=== PATIENT | male | born 1970 | race Caucasian/White ===

== ENCOUNTER 2019-09-30 00:03 | Day surgery (SDC) | payer BC, OTHER ==
[2019-09-30] VITALS (8 sets, daily range): BP systolic 117–152; BP diastolic 70–93; Ht 188 cm; Wt 145.5 kg
[~2019-09-30] VITALS: Ht 188 cm; Wt 145.5 kg
[~2019-09-30 00:03] MED LIST: ARTHROTEC 501 TAB.EC PO; HYDROCODONE-APA1 TAB PO
[2019-09-30] MEDS ORDERED: ULTRAM50 MG PO (00:12)
[2019-09-30 01:04] LABS: BASOPHILS 0.1 % (0-2); EOSINOPHILS 0.4 % (0-7); HEMATOCRIT 56.2 % (42.0-54.0); HEMOGLOBIN 19.9 g/dL (13.5-17.5); IMMATURE GRANULOCYTES 0.3 % (0-5); LYMPHOCYTES 2.9 % (15-50); MCH 32.5 pg (26.0-34.0); MCHC 35.4 g/dL (31.0-37.0); MCV 91.8 fL (80.0-100.0); MEAN PLATELET VOLUME 10.2 fL (7.4-10.4); MONOCYTES 5.7 % (2-11); NEUTROPHILS 90.6 % (40-80); PLATELET COUNT 214 10x3/uL (130-400); RBC 6.12 10x6/uL (4.20-6.10); RDW 12.4 % (11.5-14.5); WBC 15.9 10x3/uL (4.8-10.8)
[2019-09-30 01:13] LABS: APPEARANCE CLEAR (CLEAR); BILIRUBIN NEGATIVE (NEGATIVE); COLOR YELLOW (YELLOW); GLUCOSE NEGATIVE (NEGATIVE); KETONE MODERATE mg/dL (NEGATIVE); NITRITE NEGATIVE (NEGATIVE); PROTEIN NEGATIVE (NEGATIVE); UROBILINOGEN NORMAL (NORMAL)
[2019-09-30 01:15] LABS: ANION GAP 14.5 mmol/L (8-16); CARBON DIOXIDE 28.6 mmol/L (21.0-32.0); CREATININE - SERUM 1.4 mg/dL (0.6-1.3); POTASSIUM - SERUM 4.1 mmol/L (3.5-5.1)
[2019-09-30 01:21] LABS: ALBUMIN 3.9 g/dL (3.4-5.0); BILIRUBIN - TOTAL 0.71 mg/dL (0.2-1.3); PROTEIN - SERUM 7.7 g/dL (6.4-8.2)
[2019-09-30] MEDS ORDERED: RESTORIL15 MG PO (03:48)
[2019-09-30] MEDS ORDERED: IBUPROFEN600 MG PO (03:49)
--- NOTE | 2019-09-30 10:15 | NUR ---
PATIENT TO SURGERY
--- NOTE | 2019-09-30 12:20 | NUR ---
PATIENT BACK TO ROOM WITH IV INTACT. NO COMPLAINTS OR SIGNS OF DISTRESS. ABD INCISION X 3 WITH BANDAIDS CDI. NO COMPLAINTS AT THIS TIME. FAMILY AT BEDSIDE. PATIENT VS STABLE. CALL LIGHT WITHIN REACH.
--- NOTE | 2019-09-30 13:00 | NUR ---
PATIENT RECIEVED PAIN PILL. TOLERATED CLEAR LIQUIDS WITH NO PROBLEMS. IV INTACT. HURTING IN SHOULDERS. EXPLAINED TO PATIENT HE WOULD NEED TO GET UP AND MOVE AROUND. VERBALIZED UNDERSTANDING. CALL LIGHT WITHIN REACH.
--- NOTE | 2019-09-30 17:00 | NUR ---
PATIENT UP AMBULATING IN [place] WITH . NO PROBLEMS AT THIS TIME. TOLERATED REGULAR DIET WITH NO PROBLEMS. IV INTACT.
[2019-09-30] MEDS ORDERED: HYDROCODON-ACE1 EAC7 PO (17:08)
[2019-09-30] MEDS ORDERED: COLACE100 MG PO (17:09)
--- NOTE | 2019-09-30 18:00 | NUR ---
PATIENT RECIEVED DC INSTRUCTIONS. VERBALIZED UNDERSTANDING. PRESCRIPTION GIVEN TO . NO QUESTIONS AT THIS TIME. IV REMOVED WITH CATH TIP INTACT. CALL LIGHT WITHIN REACH. FAMILY AT BEDSIDE.
--- NOTE | 2019-10-02 08:49 | OP ---
PATIENT NAME: NORMA AMBRIZ MEDICAL RECORD: [id number] :70 LOCATION:D.OPS ADMISSION DATE: SURGEON: YAW MCKEON MD DATE OF OPERATION: 09/30/2019 PREOPERATIVE DIAGNOSIS: Acute appendicitis with localized peritonitis. POSTOPERATIVE DIAGNOSIS: Acute appendicitis with localized peritonitis. PROCEDURE: Laparoscopic appendectomy. SURGEON: Yaw Mckeon MD DROP HAMMER SET UP OPERATOR: None. BLOOD LOSS: Minimal. ANESTHESIA: General. COMPLICATIONS: None. The risks, possible complications and alternatives to the procedure were explained to the patient. He elects to proceed. The discussion specifically included, but was not limited to, bleeding requiring emergency reoperation, infection, intestinal injury as well as staple line leakage. OPERATIVE COURSE: The patient was conveyed to the operating room urgently on 09/30/2019. General anesthesia was induced by the anesthesia staff. The abdomen was sterilely prepped and draped. A small skin harish was accomplished in the left upper quadrant. Veress needle was inserted through the skin harish into the peritoneal cavity. CO2 insufflation was begun. Once a sufficient pneumoperitoneum had been achieved, a 5-mm trocar was inserted through an incision in left lower quadrant. A 5-mm trocar was inserted through an incision in the left upper quadrant. A 12-mm trocar was inserted through an incision at the umbilicus. During insertion of the Veress needle and all trocars, there appeared to have been no injury to the bowels, any intraperitoneal or retroperitoneal structures. An abdominal survey was undertaken. The appendix was actually not a right lower quadrant organ or right upper quadrant organ, it was some place in between. There was localized peritonitis. No evidence of rupture. No evidence of an abscess. I was able to grasp the appendix. Hold it anteriorly. A window was created in the mesoappendix. I took down the mesoappendix utilizing the laparoscopic EnSeal device. I then stapled across the tip of the cecum utilizing an Endo-JOSÉ LUIS type stapler with a blue load. The appendix was placed within a bag retrieval device. It was then withdrawn out through the umbilical fascia defect. The 12-mm trocar was replaced and the abdomen reinsufflated. I irrigated and aspirated the right upper quadrant and the right lower quadrant. There was no bleeding even at low pressure of 8. The 12-mm trocar was removed. The fascia at the umbilicus was closed with interrupted 0 Vicryl sutures utilizing the Shravan-Patti suture closure device. All trocars were removed and the abdomen desufflated. OPERATIVE REPORT [id number] KATINA,NORMA The skin at the umbilicus was closed with interrupted 4-0 Vicryl Rapide sutures. The other skin incisions were closed with interrupted intracuticular 3-0 Vicryls. Benzoin and Steri-Strips were applied. The patient was then extubated and conveyed to the post-anesthesia care unit where he was in stable condition. I plan that he will be dismissed home later today on hydrocodone as well as Colace. I will see him in the office in 2 to 3 weeks. TRANSINT:[id number] Voice Confirmation ID: [id number] DOCUMENT ID: [id number] YAW MCKEON MD at 0849 CC: PRATEEK OJEDA [id number] DICTATION DATE: 09/30/19 1148 MASKING MACHINE OPERATOR: 09/30/19 1239 [facility] 09/30/19 [id number] [place] [address]
--- NOTE | 2019-10-02 08:49 | DS ---
PATIENT:NORMA AMBRIZ :70 MEDICAL RECORD: [id number] DISCHARGE SUMMARY ADMISSION DATE: 09/30/19 DISCHARGE DATE: 09/30/19 PRINCIPAL DIAGNOSES: Acute appendicitis with localized peritonitis. PROCEDURE: Laparoscopic appendectomy. HOSPITAL COURSE: The patient was admitted through the Emergency Room. He was hydrated. He was started on intravenous antibiotics. He underwent the above operative procedure. Grossly, the appendix had not ruptured. There was no abscess. There was localized peritonitis. The patient was conveyed back to his room. He is being dismissed home on hydrocodone and Colace. I will see him in the office in 2-3 weeks. TRANSINT:[id number] Voice Confirmation ID: [id number] DOCUMENT ID: [id number] YAW MCKEON MD at 0849 CC: PRATEEK OJEDA [id number] DICTATION DATE: 09/30/19 1132 FARM SPECIALIST: 09/30/19 1819 [facility] 09/30/19 [facility] [address] [place] [address]
== END 2019-09-30 18:10 | disposition home or self-care (01) ==
LOC: D.OPS 00:03 → D.MS 00:03 → D.ER 00:03 → D.MS 02:41 → EDSTATUS 03:03 → D.OPS 18:10
PROVIDERS: Family Medicine; ATTEND Surgery
DX: K35.32 Acute appendicitis with perforation, localized peritonitis, and gangrene, without abscess (principal)